=== PATIENT | female | born 1945 | race Caucasian/White ===

== ENCOUNTER 2024-08-07 12:24 | Emergency (ER) | payer SELFPAY ==
[2024-08-07] VITALS (10 sets, daily range): BP systolic 163–196; BP diastolic 76–81; PULSE 81–112; RESP 18–35; TEMP 36.4–36.9; O2SAT 93–99; BMI 24.2
--- NOTE | 2024-08-07 12:40 | DI.RAD.S_ITS ---
PROCEDURE: XR CHEST 1V INDICATIONS: chest pain TECHNIQUE: One view of the chest was acquired. COMPARISON: None. FINDINGS: Surgical changes and devices: Prior surgical fixation of the right mid clavicle. Cardiac director medical safety projects over the left chest wall. Lungs and pleura: Lungs are clear. No pleural effusions or pneumothorax. Suspected hiatal hernia. Mediastinum: Mediastinal contours appear normal. Heart size is normal. Bones and chest wall: No suspicious bony lesions. Overlying soft tissues appear unremarkable. IMPRESSION: No acute cardiopulmonary abnormality is seen. Dictated by: Rainer Flores M.D. on 08/07/2024 at 13:52 Approved by: Rainer Flores M.D. on 08/07/2024 at 13:53
--- NOTE | 2024-08-07 12:44 | EKG_ITS ---
[address] [address] Test Date: 2024-08-07 Pat Name: Katya Fung Department: [facility] Room: Gender: Female Charge Entry Clerk: CACHORRO : 1945 Requested By: Order Number: [id number] Reading MD: Lonnie Henson Measurements Intervals Weiner Rate: 88 P: 25 [place]: 130 QRS: 24 QRSD: 76 T: 35 QT: 350 QTc: 423 Interpretive Statements Normal sinus rhythm Electronically Signed On 08-09-2024 7:49:05 PST by Lonnie Henson
--- NOTE | 2024-08-07 13:29 | PC.NURSE ---
Pt reports L-sided pain from the waist up x 14 days. Currently wearing a holter monitor issued by the PA.
[2024-08-07 13:57] LABS: Add Manual Diff / Slide Review NO; Basophils Absolute Auto 0 /uL (0-100); Basophils Percent Auto 0.1 % (0-2); Eosinophils Absolute Auto 0 /uL (0-450); Eosinophils Percent Auto 0.2 % (2-4); Hematocrit 40.3 % (36-46); Hemoglobin 13.5 g/dL (12.0-16.0); Lymphocytes Absolute Auto 1300 /uL (1100-4500); Lymphocytes Percent Auto 16.1 % (25-40); Mean Corpuscular HGB Conc 33.4 % (30-36); Mean Corpuscular Hemoglobin 32.3 PG (26-34); Mean Corpuscular Volume 96.7 fL (80-100); Monocytes Absolute Auto 2300 /uL (0-900); Monocytes Percent Auto 29.5 % (3-14); Neutrophils Absolute Auto 4300 /uL (1500-7000); Neutrophils Percent Auto 54.1 % (50-75); Platelet Count 207 X10^3/uL (150-400); Red Blood Cell Count 4.17 X10^6/uL (4.0-5.2); Red Cell Distribution Width 13.4 % (11.6-14.8); White Blood Cell Count 7.9 X10^3/uL (4.5-11.0)
[2024-08-07 14:01] LABS: Prothrombin Time 11.1 SECONDS (9.4-12.5)
[2024-08-07 14:04] LABS: PTT Partial Thromboplastin Tim 33 SECONDS (25.1-36.5)
[2024-08-07 14:05] LABS: Alanine Aminotransferase 24 IU/L (<35); Albumin 4.8 g/dL (3.5-5.0); Albumin Globulin Ratio 1.8 (1.0-2.8); Alkaline Phosphatase 88 U/L (38-126); Aspartate Aminotransferase 30 IU/L (14-36); BUN Creatinine Ratio 18.6 (6-22); Bilirubin Total 0.6 mg/dL (0.2-1.3); Blood Urea Nitrogen 16 mg/dL (7-17); Calcium 10.1 mg/dL (8.4-10.2); Carbon Dioxide 27 mmol/L (22-32); Chloride 105 mmol/L (98-107); Creatine Kinase 75 U/L (30-135); Estimated Glomerular Filt Rate > 60 mL/min (>60); Globulin 2.6 g/dL (1.7-4.1); Glucose 97 mg/dL (80-110); HEMOLYSIS < 15 (0-50); Lipase 263 U/L (23-300); Magnesium 2.2 mg/dL (1.6-2.3); Potassium 4.4 mmol/L (3.4-5.1); Sodium 138 mmol/L (137-145); Total Protein 7.4 g/dL (6.3-8.2)
[2024-08-07 14:17] LABS: NT-proBNP (BNP-Adult 18+) 286 pg/mL (<450); Troponin I < 0.012 ng/mL (0.01-0.034)
--- NOTE | 2024-08-07 14:30 | ED.CHESTPAIN ---
HPI - Chest Pain General Chief Complaint: Chest Pain Stated Complaint: L Arm/Side Severe Pain Time Seen by Provider: 08/07/24 14:30 Source: patient Mode of arrival: Ambulatory Limitations: no limitations History of Present Illness HPI narrative: patient is a 79-year-old female no known past medical history presenting to the emergency department from home for evaluation of states that she has been having palpitations ongoing and persistent since she had an infusion of zoledronic acid on 07/21/2024 at the [facility] in [place]. States that she did follow up at the [facility] in [place] on 07/22/2024 was told she had a arrhythmia and states that she was not sent home with any medications for this. She states that she is having persistent palpitations, left arm pain /chest pain. she describes it as a dull ache, states that it is worse with motion, however patient does have baseline whole-body tremors therefore she states it is hard to stay still and not cause worsening pain Therefore she decided come into the ED for further evaluation treatment. No trauma no falls not on any blood thinners Related Data Allergies Allergy/AdvReac Type Severity Reaction Status Date / Time No Known Drug Allergies Allergy Verified 08/07/24 12:40 Review of Systems Review of Systems Narrative: General: Denies fever, chills, weight loss HEENT: Denies headache, eye drainage, eye irritation, head trauma, sore throat, voice change Cardiovascular: positive left-sided chest pain, palpitations, deniesshortness of breath, tachycardia Respiratory: Denies any shortness of breath, cough, wheeze, stridor GI/: Denies any abdominal pain, nausea, vomiting, diarrhea, bright red blood per rectum, melanotic stools, urinary frequency, urinary retention, dysuria, hematuria MSK: positive left upper extremity pain Skin: Denies any rashes, lesions, discoloration Neuro: Denies any headache, lightheadedness, dizziness, fainting, weakness Psych: Denies SI/HI Patient History Social History Smoking Status: Never smoker Smoking Status: Never smoker Substance Use Type: does not use Exam Narrative Exam Narrative: General: Cooperative, comfortable, well-developed, not in acute distress HEENT: Normocephalic, atraumatic, PERRLA, normal sclera, eyelids normal, Neck: Active full range of motion, atraumatic Chest: Normal to inspection, negative crepitus, no overlying erythema ecchymosis Respiratory: Normal respiratory effort, not in acute respiratory distress, clear to auscultation bilaterally negative cough, wheeze, tachypnea, rhonchi, rales Cardiology: Regular rate rhythm negative gallop, murmur, rubs GI/: Normal to inspection, soft, nonrigid, no tenderness to palpation, exam deferred MSK: Full range of active range of motion of all 4 extremities, atraumatic Skin: No rashes lesions noted Neuro: patient with baseline whole-body tremors,Alert awake oriented x3, moves all 4 extremities spontaneously, cranial nerves intact, able to answer all questions appropriately follows commands appropriately Psych: Cooperative, negative suicidal or homicidal ideations Initial Vital Signs Initial Vital Signs: Vital Signs Temperature 97.6 F 08/07/24 12:32 Pulse Rate 112 H 08/07/24 12:32 Respiratory Rate 20 08/07/24 12:32 Blood Pressure 196/76 H 08/07/24 12:32 Pulse Oximetry 99 08/07/24 12:32 Oxygen Delivery Method Room Air 08/07/24 12:32 Scores HEART Score Heart Score history: Slightly Suspicious Heart Score EKG: Normal Heart Score Age: > or = 65 years old Heart Score risk factors: No known risk factors Heart Score troponin: < or = to normal limit Heart Score Total: 2 Course Orders Ordered: ED Orders 08/07/24 12:32 EKG-12 Lead Stat 08/07/24 12:40 XR chest 1V Stat EKG-12 Lead Stat 08/07/24 13:45 Complete Blood Count AUTO DIFF Stat Comprehensive Metabolic Panel Stat Lipase Stat Magnesium Stat NT-proBNP (BNP-Adult 18+) Stat PTT Partial Thromboplastin Syed Stat Prothrombin Time INR Stat Troponin & CK Cardiac Panel Stat Discontinued Medications Aspirin (Aspirin 81 Mg Chew Tab) 324 mg PO NOW ONE Stop: 08/07/24 12:41 Vital Signs Vital signs: Vital Signs - 8 hr 08/07/24 12:32 08/07/24 12:52 08/07/24 13:00 Temperature 97.6 F Pulse Rate 112 H 98 H 83 Respiratory Rate 20 35 H Blood Pressure 196/76 H Pulse Oximetry 99 93 96 Oxygen Delivery Method Room Air 08/07/24 13:01 08/07/24 13:01 08/07/24 13:30 Temperature Pulse Rate 82 Respiratory Rate 29 H Blood Pressure 171/79 H 163/81 H Pulse Oximetry 94 Oxygen Delivery Method 08/07/24 13:30 08/07/24 14:00 08/07/24 14:01 Temperature Pulse Rate 85 82 Respiratory Rate 18 20 Blood Pressure 173/80 H Pulse Oximetry 96 95 Oxygen Delivery Method Room Air 08/07/24 14:01 Temperature Pulse Rate 81 Respiratory Rate 18 Blood Pressure Pulse Oximetry 95 Oxygen Delivery Method Room Air MDM - Chest Pain Differential Diagnosis Differential diagnosis: Likely atypical chest pain, st elevation myocardial infarction, costochondritis, chest pain and other ( electrolyte abnormality) Lab Data 08/07/24 13:45 08/07/24 13:45 Labs: Lab Results 08/07/24 Range/Units 13:45 WBC 7.9 (4.5-11.0) X10^3/uL RBC 4.17 (4.0-5.2) X10^6/uL Hgb 13.5 (12.0-16.0) g/dL Hct 40.3 (36-46) % MCV 96.7 (80-100) fL MCH 32.3 (26-34) PG MCHC 33.4 (30-36) % RDW 13.4 (11.6-14.8) % Plt Count 207 (150-400) X10^3/uL Neut % (Auto) 54.1 (50-75) % Lymph % (Auto) 16.1 L (25-40) % Nash % (Auto) 29.5 H (3-14) % Eos % (Auto) 0.2 L (2-4) % Baso % (Auto) 0.1 (0-2) % Neut # (Auto) 4300 (8169-1699) /uL Lymph # (Auto) 1300 (2800-2311) /uL Nash # (Auto) 2300 H (0-900) /uL Eos # (Auto) 0 (0-450) /uL Baso # (Auto) 0 (0-100) /uL PT 11.1 (9.4-12.5) SECONDS INR 1.0 (0.9-1.3) APTT 33 (25.1-36.5) SECONDS Sodium 138 (137-145) mmol/L Potassium 4.4 (3.4-5.1) mmol/L Chloride 105 (98-107) mmol/L Carbon Dioxide 27 (22-32) mmol/L BUN 16 (7-17) mg/dL Creatinine 0.86 (0.52-1.04) mg/dL Estimated GFR > 60 (>60) mL/min BUN/Creatinine Ratio 18.6 (6-22) Glucose 97 (80-110) mg/dL Calcium 10.1 (8.4-10.2) mg/dL Magnesium 2.2 (1.6-2.3) mg/dL Total Bilirubin 0.6 (0.2-1.3) mg/dL AST 30 (14-36) IU/L ALT 24 (<35) IU/L Alkaline Phosphatase 88 (38-126) U/L Total Creatine Kinase 75 (30-135) U/L Troponin I < 0.012 (0.01-0.034) ng/mL NT-Pro-B Natriuret Pep 286 (<450) pg/mL Total Protein 7.4 (6.3-8.2) g/dL Albumin 4.8 (3.5-5.0) g/dL Globulin 2.6 (1.7-4.1) g/dL Albumin/Globulin Ratio 1.8 (1.0-2.8) Lipase 263 (23-300) U/L Imaging Data Chest x-ray: Radiologist's Impression: [place] [address] XRay Report Signed Patient: Katya Fung MR#: [id number] : 1945 Acct:[id number] Age/Sex: 79 / F Date of Service: 08/07/24 Loc: ED Accession Number: [id number] Procedure: XR chest 1V Ordering Provider: Narciso Marx D.O. PROCEDURE: XR CHEST 1V INDICATIONS: chest pain TECHNIQUE: One view of the chest was acquired. COMPARISON: None. FINDINGS: Surgical changes and devices: Prior surgical fixation of the right mid clavicle. Cardiac medical review specialist projects over the left chest wall. Lungs and pleura: Lungs are clear. No pleural effusions or pneumothorax. Suspected hiatal hernia. Mediastinum: Mediastinal contours appear normal. Heart size is normal. Bones and chest wall: No suspicious bony lesions. Overlying soft tissues appear unremarkable. IMPRESSION: No acute cardiopulmonary abnormality is seen. ECG Data Interpretation: EKG interpreted ED physician sinus at 88 beats per minute, QTC 423, normal axis, nonspecific ST changes, no STEMI MDM Narrative Medical decision making narrative: patient is a 79-year-old female no significant past medical history presenting for persistent left-sided arm/chest pain ongoing persistent since 07/21/2024 after she had an IV infusion of zoledronic acid at a [facility] in [place] for history of osteoporosis, she states that she has had persistent left arm pain left-sided chest pain worse with motion, however she has baseline whole-body tremors therefore she states it is hard to stay still. She said she did call her doctor who initially ordered the zoledronic acid but was informed that her symptoms are normally not associated with administration of this medication. Patient with heart score of 2 Patient did have lab work imaging EKG performed here. Patient EKG nonischemic in nature, troponin negative, no electrolyte derangements, no leukocytosis. Chest x-ray unremarkable for any cardiac or pulmonary abnormalities. patient instructed to follow up with Cardiology for echo and stress test in an outpatient setting she was given strict return precautions she verbalized understanding of this and agrees to being discharged home with outpatient follow up Discharge Plan Departure Patient Disposition: Home Clinical Impression: Chest pain Activity Restrictions/Additional Instructions: please follow up with Cardiology and primary care Please read the discharge instructions sheet carefully and bring all papers to all doctor follow-up visits, as it may contain information that your doctor may want to see. Disease processes change and evolve, if your symptoms worsen or if you develop any new symptoms that are concerning to you please return for evaluation. Your evaluation today does not show any evidence of any life-threatening/serious illnesses requiring admission to the hospital or surgery. Please follow-up with your doctor for re-evaluation in approximately 1 day. Seek immediate medical attention for any worrisome symptoms. Referrals: Ezekiel Vilchis MD [Physician] - Stand Alone Forms: Patient Portal/API/Survey
[2024-08-07] MEDS: KETOROLAC 30 MG/ML VIAL 15 MG IV (15:10)
== END 2024-08-07 15:21 | disposition home or self-care (01) ==
PROVIDERS: Emergency Provider Student in an Organized Health Care Education/Training Program
DX: R07.9 Chest pain, unspecified (principal); R00.2 Palpitations; Z87.39 Personal history of other diseases of the musculoskeletal system and connective tissue
CPT/HCPCS: 36415; 71045; 80053; 82550; 83690; 83735; 83880; 84484; 85025; 85610; 85730; 93005; 96374; 99284; J1885

== ENCOUNTER → 2024-11-08 13:13 | Outpatient (CLI) | payer OTHER, SELFPAY ==
--- NOTE | 2024-11-08 13:14 | DI.US.S_ITS ---
PROCEDURE: US ARTERIAL DUPLEX UE LT INDICATIONS: irregular heartbeat, PVC TECHNIQUE: Color and pulse Doppler interrogation was performed of left upper extremity arterial systems, with image documentation. COMPARISON: None. FINDINGS: Left upper extremity: Subclavian artery (proximal): 231.4 cm/sec, with patent flow. Subclavian artery (mid): 87.4 cm/sec, with patent flow. Subclavian artery (distal): 67.3 cm/sec, with patent flow. Axillary artery: 61.7 cm/sec, with patent flow. Brachial artery (proximal): 98.5 cm/sec, with patent flow. Brachial artery (mid): 114.8 cm/sec, with patent flow. Brachial artery (distal): 74.6 cm/sec, with patent flow. Radial artery (proximal): 87.4 cm/sec, with patent flow. Radial artery (mid): 72 cm/sec, with patent flow. Radial artery (distal): 60.6 cm/sec. with patent flow. Ulnar artery (proximal): 76.5 cm/sec, with patent flow. Ulnar artery (mid): 86 cm/sec, with patent flow. Ulnar artery (distal): 77.1 cm/sec. with patent flow. Kramer-scale imaging description: No significant atheromatous disease. 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 * Follow-up left upper extremity CT angiogram may be performed for further characterization. Dictated by: Benji Cordon M.D. on 11/09/2024 at 22:02 Approved by: Benji Cordon M.D. on 11/09/2024 at 22:07
== END ==
PROVIDERS: Referring Provider Internal Medicine Cardiovascular Disease; Visit Provider Internal Medicine Cardiovascular Disease
DX: I49.9 Cardiac arrhythmia, unspecified (principal); I49.3 Ventricular premature depolarization; M79.602 Pain in left arm
CPT/HCPCS: 93931